=== PATIENT | male | born 1960 | race Caucasian/White ===

== ENCOUNTER 2021-09-04 07:10 | Day surgery (SDC) | payer BC, OTHER ==
[2021-09-04] MEDS: Lactated Ringers 1,000 ML IV SCH (07:50)
[2021-09-04] MEDS ORDERED: Midazolam 1 MG/ML 2 ML SDV ONE (09:33)
[2021-09-04] MEDS ORDERED: Propofol 200 MG/20 ML SDV ONE (09:33)
[2021-09-04] MEDS ORDERED: fentaNYL 100 MCG/2 ML SDV ONE (09:44)
== END 2021-09-04 12:10 | disposition home or self-care (01) ==
LOC: VM.SDS 07:10
PROVIDERS: ATTEND Family Medicine
DX: Z12.11 Encounter for screening for malignant neoplasm of colon (principal); D12.6 Benign neoplasm of colon, unspecified; K57.30 Diverticulosis of large intestine without perforation or abscess without bleeding; K64.9 Unspecified hemorrhoids; K58.9 Irritable bowel syndrome, unspecified; I12.9 Hypertensive chronic kidney disease with stage 1 through stage 4 chronic kidney disease, or unspecified chronic kidney disease; E11.22 Type 2 diabetes mellitus with diabetic chronic kidney disease; E66.9 Obesity, unspecified; E78.2 Mixed hyperlipidemia; N40.1 Benign prostatic hyperplasia with lower urinary tract symptoms; N18.32 Chronic kidney disease, stage 3b; N52.9 Male erectile dysfunction, unspecified; Z79.899 Other long term (current) drug therapy; Z98.890 Other specified postprocedural states; Z79.84 Long term (current) use of oral hypoglycemic drugs; Z79.82 Long term (current) use of aspirin; Z68.30 Body mass index [BMI] 30.0-30.9, adult
CPT/HCPCS: 00811; 82947; J2250; J2704; J3010; J7120

== ENCOUNTER 2024-11-16 07:45 | Day surgery (SDC) | payer MEDICARE, OTHER ==
[2024-11-16] MEDS: Lactated Ringers 1,000 ML IV SCH (08:03)
[2024-11-16] MEDS ORDERED: Propofol 200 MG/20 ML SDV ONE ×2 (08:24→09:05)
[2024-11-16] MEDS ORDERED: fentaNYL 100 MCG/2 ML SDV ONE (08:25)
== END 2024-11-16 11:10 | disposition home or self-care (01) ==
LOC: VM.SDS 07:45
PROVIDERS: ATTEND Family Medicine
DX: Z12.11 Encounter for screening for malignant neoplasm of colon (principal); D12.3 Benign neoplasm of transverse colon; D12.4 Benign neoplasm of descending colon; D12.8 Benign neoplasm of rectum; K63.5 Polyp of colon; K57.30 Diverticulosis of large intestine without perforation or abscess without bleeding; I12.9 Hypertensive chronic kidney disease with stage 1 through stage 4 chronic kidney disease, or unspecified chronic kidney disease; E11.22 Type 2 diabetes mellitus with diabetic chronic kidney disease; N18.9 Chronic kidney disease, unspecified; E66.9 Obesity, unspecified; E78.5 Hyperlipidemia, unspecified; Z79.4 Long term (current) use of insulin; Z79.82 Long term (current) use of aspirin; Z79.84 Long term (current) use of oral hypoglycemic drugs; Z68.30 Body mass index [BMI] 30.0-30.9, adult; Z79.899 Other long term (current) drug therapy; Z86.0100 Personal history of colon polyps, unspecified
CPT/HCPCS: 00811; 82947; J2704; J3010; J7120